=== PATIENT | female | born 1990 | race Caucasian/White ===

== ENCOUNTER 2020-10-25 23:11 | Emergency (ER) | payer OTHER ==
[~2020-10-25] VITALS: Ht 160 cm; Wt 86.2 kg
--- NOTE | 2020-10-25 23:28 | NUR ---
pt aox3 c/o bump to left after thigh. states she noticed it 4 days ago. getting worse. v/s stable. pt in no distress. will continue to monitor pt
[2020-10-25 23:29] VITALS: BP 103/71
--- NOTE | 2020-10-25 23:31 | Emergency Room Report ---
History of Present Illness General Chief Complaint: Skin Rash/Abscess Source: Patient Present Illness HPI This is a 30-year-old female with no significant past medical history. She presents with chief complaint of an abscess to her left inner thigh. Onset for last 3 to 4 days. Painful to palpation and walking. Better with rest. Pain is 8 out of 10. No drainage. Never had this problem before. Allergies: Coded Allergies: No Known Allergies (Unverified , 10/25/20) COVID-19 Screening Contact w/high risk pt: No Experienced COVID-19 symptoms?: No COVID-19 Testing performed CELLULOID TRIMMER: No Patient History Past Medical History: see triage record, old chart reviewed Past Surgical History: none Pertinent Family History: none Social History: Denies: smoking Last Menstrual Period: 07/13/20 Now: Yes : 2 Para: 1 Immunizations: other Reviewed Nursing Documentation: PMH: Agreed; PSxH: Agreed Nursing Documentation-PMH Hx Cardiac Problems: No Hx Hypertension: No Hx Pacemaker: No Hx Asthma: Yes Hx COPD: No Hx Diabetes: No Hx Cancer: No Hx Gastrointestinal Problems: No Hx Dialysis: No History Of Psychiatric Problem: No Hx Neurological Problems: No Hx Cerebrovascular Accident: No Hx Seizures: No Review of Systems Eye: Denies: eye pain, blurred vision ENT: Denies: ear pain, nose congestion, throat swelling Respiratory: Denies: cough, shortness of breath Cardiovascular: Denies: chest pain, palpitations Gastrointestinal: Denies: abdominal pain, diarrhea, nausea, vomiting Musculoskeletal: Denies: back pain, joint pain Skin: Denies: rash Neurological: Denies: headache, numbness Endocrine: Denies: increased thirst, increased urine Hematologic/Lymphatic: Denies: easy bruising All Other Systems: negative except mentioned in HPI Physical Exam Vital Signs Date Time Temp Pulse Resp B/P (MAP) Pulse Ox O2 Delivery O2 Flow Rate FiO2 10/25/20 23:15 97.9 83 16 103/71 (82) 100 Room Air Vitals normal Sp02 EP Interpretation: reviewed, normal General Appearance: well appearing, no apparent distress, alert Head: normocephalic, atraumatic Eyes: bilateral eye PERRL, bilateral eye EOMI ENT: hearing grossly normal, normal pharynx Neck: full range of motion, supple, no meningismus Respiratory: chest non-tender, lungs clear, normal breath sounds Cardiovascular #1: regular rate, rhythm, no murmur Gastrointestinal: normal bowel sounds, non tender, no mass, no organomegaly, no bruit, non-distended Musculoskeletal: back normal, normal range of motion, gait/station normal, other - Left inner thigh: Proximal medial thigh with a 2 cm fluctuant area. No erythema. Psychiatric: mood/affect normal Procedures Incision and Drainage Incision and Drainage : Consent: Verbal Site: Left thigh Blade Size: 11 I & D Procedure: betadine prep Wound Location: lower extremity Anesthesia: 1% Lidocaine Volume Anesthetic (ccs): 2 Patient Tolerated: Well Complications: None Progress Area cleaned with Betadine. Local anesthetic with 1% lidocaine without epinephrine injected. I made a 2 cm incision. There was mod amount of pus expressed. Loculated area broken up. Patient tolerate procedure without any problem. Medical Decision Making Diagnostic Impression: Primary Impression: Abscess ER Course This patient presents with a cutaneous abscess. No deep infection. No necrotizing fasciitis. Last Vital Signs Date Time Temp Pulse Resp B/P (MAP) Pulse Ox O2 Delivery O2 Flow Rate FiO2 10/25/20 23:15 97.9 83 16 103/71 (82) 100 Room Air Status: improved Disposition: HOME, SELF-CARE Condition: Stable Scripts Mupirocin* (MUPIROCIN*) 22 Gm Oint...g. 1 APPLIC TOPIC THREE TIMES A DAY, #22 GM Prov: Deyvi Harley MD 10/25/20 Clindamycin Hcl (CLINDAMYCIN HCL) 300 Mg Capsule 300 MG ORAL THREE TIMES A DAY, #21 CAP Prov: Deyvi Harley MD 10/25/20 Patient Instructions: Abscess Additional Instructions: Keep wound clean. Clean first with hydroperoxide and apply antibiotic ointment. Follow-up with your doctor in 7 days for recheck. Return if worse. Deyvi Harley MD Oct 25, 2020 23:31
[2020-10-25] MEDS ORDERED: CLINDAMYCIN HC300 MG ORAL (23:48)
[2020-10-25] MEDS ORDERED: MUPIROCIN22 GM TOPIC (23:48)
--- NOTE | 2020-10-25 23:55 | NUR ---
pt aox3 given and understands discharge instructions. v/s stable. pt in no distress. ambulatory out w steady gait
== END 2020-10-25 23:56 | disposition home or self-care (01) ==
LOC: EMR 23:33
DX: L02.416 Cutaneous abscess of left lower limb (principal)
CPT/HCPCS: 10060; 99282